=== PATIENT | male | born 1955 | race Caucasian/White ===

== ENCOUNTER 2017-01-11 09:05 | Emergency (ER) | payer SELFPAY ==
[~2017-01-11] VITALS: Ht 165.1 cm; Wt 122.5 kg
[~2017-01-11 09:05] MED LIST: HYDROCHLOROTHIA25 M1 PO; LISINOPRIL40 MG PO; TENORMIN25 MG PO
--- NOTE | 2017-01-11 09:05 | NUR ---
Patient was BIB [place] [employer] at this time and taken to [facility].
[2017-01-11 09:16] VITALS: BP 209/109
--- NOTE | 2017-01-11 09:49 | NUR ---
PATIENT IS A 61 YO MALE BIB [facility] FOR PREBOOK CLEARANCE. PATIENT HAS A HX OF HTN NOT ON MEDICATION HAS NO PMD. HE IS AWAKE AND ALERT ON ARRIVAL ABLE TO AMBULATE HIS BP IS 209/ 109 NO NEURO DEFICITIS NON SYMPTOMATIC.
--- NOTE | 2017-01-11 10:37 | NUR ---
Dr. Bajwa evaluating patient.
[2017-01-11] MEDS ORDERED: ACETAMINOPHEN EXTRA STRENGTH 500 MG TAB PO ONE (10:40)
[2017-01-11 11:28] VITALS: BP 168/96
--- NOTE | 2017-01-11 11:28 | NUR ---
Patient discharged with v/s stable. Written and verbal after care instructions given and explained. Patient verbalized understanding. Police with in custody. All questions addressed prior to discharge. Advised to follow up with PMD.
== END 2017-01-11 11:28 ==
LOC: MED 09:05
DX: Z02.89 Encounter for other administrative examinations (principal); I10 Essential (primary) hypertension; E66.01 Morbid (severe) obesity due to excess calories; Z68.41 Body mass index [BMI] 40.0-44.9, adult

== ENCOUNTER 2017-07-05 23:35 | Emergency (ER) | payer SELFPAY ==
[~2017-07-05] VITALS: Ht 167.6 cm; Wt 127.0 kg
[~2017-07-05 23:35] MED LIST changes: +ATEN25TA7 PO; +HYDR25TA32 PO; -HYDROCHLOROTHIA25 M1 PO; +LISI40TA4 PO; -LISINOPRIL40 MG PO; -TENORMIN25 MG PO
[2017-07-05 23:44] VITALS: BP 158/73
--- NOTE | 2017-07-06 01:24 | NUR ---
PT TAKEN TO BED 8
--- NOTE | 2017-07-06 01:24 | NUR ---
PATIENT PRESENTS TO ED WITH C/O BODY ACHES AND DIARRHEA SINCE INGESTIONS OF SHRIMPS YESTERDAY.PT DENIES N/V; SKIN IS PINK/WARM/DRY; AAOX4 WITH EVEN AND STEADY GAIT; LUNGS CLEAR BL; HR EVEN AND REGULAR; PT DENIES ANY FEVER, CP, SOB, OR COUGH AT THIS TIME; VSS; PATIENT POSITIONED FOR COMFORT; HOB ELEVATED; BEDRAILS UP X2; BED DOWN. ER MD MADE AWARE OF PT STATUS.
--- NOTE | 2017-07-06 01:37 | NUR ---
Dr. Dias evaluating patient at bedside.
[2017-07-06] MEDS ORDERED: ONDANSETRON 4 MG ODT PO ONE (01:40)
[2017-07-06] MEDS ORDERED: KETOROLAC 60 MG/2 ML VIAL IM ONE (01:40)
[2017-07-06 02:14] VITALS: BP 137/61
--- NOTE | 2017-07-06 02:14 | NUR ---
Patient discharged with v/s stable. Written and verbal after care instructions given and explained. Patient alert, oriented and verbalized understanding of instructions. Ambulatory with steady gait. All questions addressed prior to discharge. ID band removed. Patient advised to follow up with PMD. Rx of ZOFRAN ODT 4MG given. Patient educated on indication of medication including possible reaction and side effects. Opportunity to ask questions provided and answered.
== END 2017-07-06 02:14 | disposition home or self-care (01) ==
LOC: MED 23:35
DX: K52.89 Other specified noninfective gastroenteritis and colitis (principal); I10 Essential (primary) hypertension; Z79.899 Other long term (current) drug therapy
CPT/HCPCS: 96372; 99283; J1885; S0119

== ENCOUNTER 2021-04-10 05:41 | Emergency (ER) | payer OTHER ==
[~2021-04-10] VITALS: Ht 165.1 cm; Wt 124.7 kg
[~2021-04-10 05:41] MED LIST changes: +LISI40TA10 PO; -LISI40TA4 PO
[2021-04-10 05:45] VITALS: BP 146/76
[2021-04-10] MEDS ORDERED: DICYCLOMINE HCL LIQUID 20 MG, ALUMINUM HYD/MAG/SIMETHICONE 30 ML, LIDOCAINE VISCOUS 2% ... PO ONE ×3 (06:05)
[2021-04-10] MEDS ORDERED: LIDOCAINE VISCOUS 2% 20 ML UDC ONE (06:19)
[2021-04-10] MEDS ORDERED: ALUMINUM HYD/MAG/SIMETHICONE 30 ML UDC ONE (06:20)
[2021-04-10] MEDS ORDERED: DICYCLOMINE HCL LIQUID 10 MG/5 ML UDC ONE (06:20)
[2021-04-10] MEDS ORDERED: FAMOTIDINE 20 MG TAB PO ONE (07:00)
[2021-04-10 08:35] LABS: BASOPHILS # (AUTO) 0.1 K/uL (0.00-0.22); EOSINOPHILS # (AUTO) 0.6 K/uL (0-0.4); EOSINOPHILS % (AUTO) 6.3 % (0.0-4.0); HEMATOCRIT 37.8 % (36-52); HEMOGLOBIN 12.4 g/dL (12.0-18.0); LYMPHOCYTES # (AUTO) 2.6 K/uL (2.0-11.5); MEAN CORPUSCULAR HEMOGLOBIN 28 pg (27-31); MEAN CORPUSCULAR HGB CONC 33 g/dL (33-37); MONOCYTES # (AUTO) 0.8 K/uL (0.8-1.0); MONOCYTES % (AUTO) 8.6 % (1.7-9.3); NEUTROPHILS # (AUTO) 5.2 K/uL (1.8-7.7); NEUTROPHILS % (AUTO) 56.1 % (42.2-75.2); PLATELET COUNT (AUTO) 374 K/uL (140-450); RED BLOOD CELL COUNT(AUTO) 4.45 MIL/uL (4.20-6.10); RED CELL DISTRIBUTION WIDTH 14.3 % (11.6-13.7); WHITE BLOOD COUNT (AUTO) 9.4 K/uL (4.8-10.8)
[2021-04-10 09:01] LABS: ALBUMIN 3.3 g/dL (3.4-5.0); ANION GAP 8.4 (8-16); CARBON DIOXIDE 31.2 mmol/L (21-32); CREATININE 0.7 mg/dL (0.6-1.3); POTASSIUM 3.6 mmol/L (3.5-5.1); TOTAL BILIRUBIN 0.4 mg/dL (0.0-1.0)
[2021-04-10] MEDS ORDERED: FAMO20TA13 PO (09:37)
[2021-04-10 09:46] VITALS: BP 146/76
== END 2021-04-10 09:46 | disposition home or self-care (01) ==
LOC: MED 05:41
DX: R10.13 Epigastric pain (principal); E11.9 Type 2 diabetes mellitus without complications; I10 Essential (primary) hypertension; Z79.899 Other long term (current) drug therapy; Z98.84 Bariatric surgery status
CPT/HCPCS: 36415; 80053; 83690; 84484; 85025; 93005; 99284

== ENCOUNTER 2022-06-05 18:16 | Emergency (ER) | payer OTHER ==
[~2022-06-05] VITALS: Ht 165.1 cm; Wt 109.3 kg
[~2022-06-05 18:16] MED LIST changes: +FAMO20TA13 PO; -LISI40TA10 PO; +LISI40TA14 PO
[2022-06-05 18:43] VITALS: BP 166/90
--- NOTE | 2022-06-05 19:02 | NUR ---
67 Y/O MALE BIB SELF C/O OF OPEN ABSCESS ON THE LEFT ELBOW. PER PT HE NOTED A 'PIMPLE" ON THE AREA 3 DAYS AGO AND TODAY IT OPOPPED, NOTED OPEN AREA, NO DRAINIANGE NOTED, REDNESS AND SWELLING AROUND THE AREA. BS 483 IN TRIAGE, DENIES ANY SANDERS, N/V NKA PMH: HDL, HTN, DM, ARTHRITIS
--- NOTE | 2022-06-05 19:15 | NUR ---
Pt report given to JIMBO OBREGON. Transfer of care at this time.
--- NOTE | 2022-06-05 19:20 | NUR ---
PT IS AWAKE AND ALERT. ALL NEEDS MET AT THIS TIME.
--- NOTE | 2022-06-05 20:12 | NUR ---
Dr. Zacarias examining patient.
[2022-06-05] MEDS ORDERED: GLIP5TAB13 PO (20:22)
[2022-06-05] MEDS ORDERED: AMLO10TA89 PO (20:22)
[2022-06-05] MEDS ORDERED: CEPH500C16 PO (20:22)
[2022-06-05 20:33] VITALS: BP 166/90
--- NOTE | 2022-06-05 20:33 | NUR ---
Patient discharged with v/s stable. Written and verbal after care instructions given and explained. Patient alert, oriented and verbalized understanding of instructions. Ambulatory with steady gait. All questions addressed prior to discharge. ID band removed. Patient advised to follow up with PMD. Rx of GLIPIZIDE, AMLODIPINE, AND KEFLEX given. Patient educated on indication of medication including possible reaction and side effects. Opportunity to ask questions provided and answered.
== END 2022-06-05 20:33 | disposition home or self-care (01) ==
LOC: MED 18:16
DX: L03.114 Cellulitis of left upper limb (principal); E11.9 Type 2 diabetes mellitus without complications; I10 Essential (primary) hypertension; Z79.4 Long term (current) use of insulin; Z79.899 Other long term (current) drug therapy; Z90.49 Acquired absence of other specified parts of digestive tract; Z98.890 Other specified postprocedural states
CPT/HCPCS: 81002; 99283

== ENCOUNTER 2024-05-07 15:41 | Inpatient (IN) | payer OTHER, MEDICAID ==
[~2024-05-07] VITALS: Ht 165.1 cm; Wt 117.9 kg
[~2024-05-07 15:41] MED LIST changes: +AMLO10TA89 PO; +CEPH500C16 PO; +GLIP5TAB22 PO
[2024-05-07 16:10] VITALS: BP 172/78; PULSE 92; RESP 18; TEMP 98.4; O2SAT 96
[2024-05-07 19:22] LABS: BASOPHILS # (AUTO) 0.1 K/uL (0.00-0.22); BASOPHILS % (AUTO) 0.7 % (0.0-2.0); EOSINOPHILS # (AUTO) 0.1 K/uL (0-0.4); EOSINOPHILS % (AUTO) 0.9 % (0.0-4.0); HEMATOCRIT 37.7 % (36-52); LYMPHOCYTES # (AUTO) 3.1 K/uL (2.0-11.5); LYMPHOCYTES % (AUTO) 25.3 % (20.5-51.1); MEAN CORPUSCULAR HEMOGLOBIN 26 pg (27-31); MEAN CORPUSCULAR HGB CONC 32 g/dL (33-37); MEAN CORPUSCULAR VOLUME 81.3 fL (80-94); MONOCYTES # (AUTO) 0.9 K/uL (0.8-1.0); MONOCYTES % (AUTO) 7.4 % (1.7-9.3); NEUTROPHILS % (AUTO) 65.7 % (42.2-75.2); PLATELET COUNT (AUTO) 445 K/uL (140-450); RED BLOOD CELL COUNT(AUTO) 4.63 MIL/uL (4.20-6.10); RED CELL DISTRIBUTION WIDTH 15.3 % (11.6-13.7); WHITE BLOOD COUNT (AUTO) 12.2 K/uL (4.8-10.8)
[2024-05-07 19:31] LABS: ANION GAP 9.8 (8-16); CALCIUM 9.1 mg/dL (8.5-10.1); CARBON DIOXIDE 32.1 mmol/L (21-32); CREATININE 0.8 mg/dL (0.6-1.3); POTASSIUM 3.9 mmol/L (3.5-5.1)
[2024-05-07 19:43] LABS: LACTIC ACID 1.3 mmol/L (0.4-2.0)
[2024-05-07] MEDS: PIPERACILLIN/TAZOBACTAM 3.375 GM in DEXTROSE 5% 50 ML IV ONE (20:30)
[2024-05-07] MEDS ORDERED: PIPERACILLIN/TAZOBACTAM 3.375 GM VIAL IV ONE (20:33)
[2024-05-07] MEDS ORDERED: HYDROcodone/APAP 5/325 MG 1 TAB TAB PO PRN (20:35)
[2024-05-07] MEDS ORDERED: VANCOMYCIN 1,000 MG VIAL ONE (21:12)
[2024-05-07] MEDS: VANCOMYCIN 1,000 MG in DEXTROSE 5% 250 ML IV ONE (21:20)
[2024-05-07 21:29] VITALS: O2SAT 98
[2024-05-07] MEDS ORDERED: METF-1139 PO (21:40)
[2024-05-07] MEDS ORDERED: VIT1TABL36 PO (21:40)
[2024-05-07] MEDS: ZOLPIDEM 5 MG TAB PO SCH (21:56)
[2024-05-07] MEDS: NACL 0.9% 1,000 ML IV SCH (21:56)
[2024-05-07] MEDS ORDERED: VANCOMYCIN PER PHARMACY MC PRN (22:35)
[2024-05-07] MEDS ORDERED: hydrALAZINE 20 MG/ML VIAL IVP PRN (22:35)
[2024-05-07] MEDS: INSULIN LANTUS 100 UNITS/ML 10 ML VIAL SUBQ SCH (22:55)
[2024-05-08 01:05] VITALS: O2SAT 98
[2024-05-08 03:13] VITALS: O2SAT 100
[2024-05-08] MEDS ORDERED: PIPERACILLIN/TAZOBACTAM 3.375 GM VIAL IV ONE (04:53)
[2024-05-08] MEDS: PIPERACILLIN/TAZOBACTAM 3.375 GM in DEXTROSE 5% 50 ML IV SCH (05:09)
[2024-05-08 05:14] VITALS: O2SAT 99
[2024-05-08 06:40] LABS: BASOPHILS # (AUTO) 0.1 K/uL (0.00-0.22); BASOPHILS % (AUTO) 1.1 % (0.0-2.0); EOSINOPHILS # (AUTO) 0.2 K/uL (0-0.4); EOSINOPHILS % (AUTO) 1.6 % (0.0-4.0); HEMATOCRIT 34.8 % (36-52); HEMOGLOBIN 11.1 g/dL (12.0-18.0); LYMPHOCYTES # (AUTO) 3.5 K/uL (2.0-11.5); LYMPHOCYTES % (AUTO) 33.7 % (20.5-51.1); MEAN CORPUSCULAR HEMOGLOBIN 26 pg (27-31); MEAN CORPUSCULAR HGB CONC 32 g/dL (33-37); MEAN CORPUSCULAR VOLUME 82.9 fL (80-94); MONOCYTES # (AUTO) 0.9 K/uL (0.8-1.0); MONOCYTES % (AUTO) 8.9 % (1.7-9.3); NEUTROPHILS # (AUTO) 5.7 K/uL (1.8-7.7); NEUTROPHILS % (AUTO) 54.7 % (42.2-75.2); PLATELET COUNT (AUTO) 403 K/uL (140-450); RED CELL DISTRIBUTION WIDTH 15.1 % (11.6-13.7); WHITE BLOOD COUNT (AUTO) 10.5 K/uL (4.8-10.8)
[2024-05-08] MEDS ORDERED: VANCOMYCIN 1,000 MG VIAL ONE (06:45)
[2024-05-08] MEDS: VANCOMYCIN 1GM/DEXT 5% PREMIX 200 ML IV SCH (06:55)
[2024-05-08 07:17] LABS: ALBUMIN 2.8 g/dL (3.4-5.0); CALCIUM 8.5 mg/dL (8.5-10.1); CARBON DIOXIDE 31.7 mmol/L (21-32); CREATININE 0.6 mg/dL (0.6-1.3); POTASSIUM 3.7 mmol/L (3.5-5.1); TOTAL BILIRUBIN 0.4 mg/dL (0.0-1.0); TOTAL PROTEIN, SERUM 6.3 g/dL (6.4-8.2)
[2024-05-08] MEDS ORDERED: METF-352 PO (08:37)
[2024-05-08] MEDS ORDERED: AMLO10TA88 PO (08:37)
[2024-05-08] MEDS ORDERED: LISI10TA30 PO (08:37)
[2024-05-08] MEDS ORDERED: CHOL200072 PO (08:37)
[2024-05-08] MEDS ORDERED: ATOR20TA40 PO (08:37)
[2024-05-08 12:00] VITALS: BP 134/66; PULSE 83; RESP 18; TEMP 97.9; O2SAT 94
[2024-05-08] MEDS: PANTOPRAZOLE 40 MG INJ VIAL IVP SCH (12:23)
[2024-05-08] MEDS: atenoloL 25 MG TAB PO SCH (12:24)
[2024-05-08] MEDS: amLODIPine 5 MG TAB PO SCH (12:24)
[2024-05-08] MEDS: hydroCHLOROthiazide 25 MG TAB PO SCH (12:25)
[2024-05-08] MEDS: lisinopriL 20 MG TAB PO SCH (12:25)
[2024-05-08] MEDS: VANCOMYCIN 1,000 MG in DEXTROSE 5% 250 ML IV SCH (12:36)
[2024-05-08] MEDS: INSULIN LANTUS 100 UNITS/ML 10 ML VIAL SUBQ SCH ×2 (14:07→21:48)
[2024-05-08] MEDS: ATORVASTATIN 20 MG TAB PO SCH (15:48)
[2024-05-08 20:00] VITALS: BP 120/63; PULSE 74; PULSE 78; RESP 18; RESP 20; TEMP 98.1; O2SAT 95; O2SAT 96
[2024-05-09 04:00] VITALS: BP 138/77; PULSE 78; RESP 18; TEMP 96.7; O2SAT 95
[2024-05-09 06:26] LABS: ANION GAP 8.3 (8-16); CALCIUM 8.5 mg/dL (8.5-10.1); CREATININE 0.7 mg/dL (0.6-1.3); POTASSIUM 3.3 mmol/L (3.5-5.1)
[2024-05-09 08:00] VITALS: BP 113/56; PULSE 3; PULSE 73; RESP 19; TEMP 96.1; O2SAT 94
[2024-05-09] MEDS ORDERED: GAUZE TP PRN (11:20)
[2024-05-09 12:00] VITALS: BP 113/56; PULSE 73; RESP 19; TEMP 96.1; O2SAT 94
[2024-05-09] MEDS: GAUZE TP SCH (13:41)
[2024-05-09 16:00] VITALS: BP 108/52; PULSE 75; RESP 18; TEMP 97.3; O2SAT 95
[2024-05-09] MEDS: INSULIN LISPRO SLIDING SCALE 100 UNITS/ML VIAL SUBQ PRN (18:14)
[2024-05-09 20:00] VITALS: BP 106/59; PULSE 66; RESP 18; RESP 19; TEMP 98.6; O2SAT 96
[2024-05-09] MEDS: BLOOD GLUCOSE MONITORING 1 DEV DEV FS SCH (20:52)
[2024-05-09] MEDS: POTASSIUM CHLORIDE 10 MEQ TABER PO SCH (23:04)
[2024-05-10 04:00] VITALS: BP 128/53; PULSE 80; RESP 17; TEMP 97; O2SAT 94
[2024-05-10 08:00] VITALS: BP 118/62; PULSE 70; PULSE 81; RESP 18; TEMP 97.1; O2SAT 94; O2SAT 97
[2024-05-10 20:00] VITALS: PULSE 77; RESP 18; O2SAT 96
[2024-05-11 08:00] VITALS: BP 95/62; PULSE 85; RESP 18; TEMP 96.9; O2SAT 94; O2SAT 96
[2024-05-11] MEDS ORDERED: CIPR500T4 PO (14:10)
[2024-05-11 16:00] VITALS: BP 100/74; PULSE 77; RESP 18; TEMP 97.8; O2SAT 95
[2024-05-11 20:00] VITALS: BP 133/80; PULSE 82; RESP 18; TEMP 98.3; O2SAT 95; O2SAT 97
[2024-05-11] MEDS ORDERED: HYDROcodone/APAP 5/325 MG 1 TAB TAB PO PRN (22:00)
[2024-05-12 04:00] VITALS: BP 112/63; PULSE 75; RESP 18; TEMP 98.6; O2SAT 96
[2024-05-12 06:04] LABS: BASOPHILS # (AUTO) 0.1 K/uL (0.00-0.22); BASOPHILS % (AUTO) 1.1 % (0.0-2.0); EOSINOPHILS # (AUTO) 0.3 K/uL (0-0.4); EOSINOPHILS % (AUTO) 3.1 % (0.0-4.0); HEMATOCRIT 33.4 % (36-52); HEMOGLOBIN 10.7 g/dL (12.0-18.0); LYMPHOCYTES # (AUTO) 1.6 K/uL (2.0-11.5); LYMPHOCYTES % (AUTO) 18.4 % (20.5-51.1); MEAN CORPUSCULAR HEMOGLOBIN 26 pg (27-31); MEAN CORPUSCULAR HGB CONC 32 g/dL (33-37); MONOCYTES # (AUTO) 1.1 K/uL (0.8-1.0); MONOCYTES % (AUTO) 12.9 % (1.7-9.3); NEUTROPHILS # (AUTO) 5.6 K/uL (1.8-7.7); NEUTROPHILS % (AUTO) 64.5 % (42.2-75.2); PLATELET COUNT (AUTO) 348 K/uL (140-450); RED BLOOD CELL COUNT(AUTO) 4.08 MIL/uL (4.20-6.10); RED CELL DISTRIBUTION WIDTH 15.3 % (11.6-13.7); WHITE BLOOD COUNT (AUTO) 8.7 K/uL (4.8-10.8)
[2024-05-12 06:50] LABS: ALBUMIN 2.6 g/dL (3.4-5.0); ANION GAP 7.9 (8-16); CALCIUM 9.1 mg/dL (8.5-10.1); CARBON DIOXIDE 31.4 mmol/L (21-32); CREATININE 1.4 mg/dL (0.6-1.3); MAGNESIUM 2.1 mg/dL (1.8-2.4); PHOSPHORUS 3.7 mg/dL (2.5-4.9); POTASSIUM 3.3 mmol/L (3.5-5.1); TOTAL BILIRUBIN 0.6 mg/dL (0.0-1.0); TOTAL PROTEIN, SERUM 6.5 g/dL (6.4-8.2)
[2024-05-12 08:00] VITALS: O2SAT 98
[2024-05-12] MEDS: POTASSIUM CHLORIDE 10 MEQ TABER PO SCH (11:24)
[2024-05-12 12:00] VITALS: BP 112/63; RESP 18; TEMP 98.6; O2SAT 98
[2024-05-12 17:54] LABS: URINE TOTAL PROTEIN 67.2 mg/dL (0-12); URINE TPRO CREAT RATIO 0.2 (0-0.20)
== END 2024-05-12 16:55 | disposition home health service (06) | DRG 872 ==
LOC: MED 15:41 → MTU 20:40 → MMU 20:40
PROVIDERS: ADMIT Hospitalist; ATTEND Hospitalist
DX: A41.9 Sepsis, unspecified organism (principal); L03.115 Cellulitis of right lower limb; N17.9 Acute kidney failure, unspecified; E44.0 Moderate protein-calorie malnutrition; Z68.43 Body mass index [BMI] 50.0-59.9, adult; E87.6 Hypokalemia; E78.5 Hyperlipidemia, unspecified; I10 Essential (primary) hypertension; Z79.899 Other long term (current) drug therapy; E11.65 Type 2 diabetes mellitus with hyperglycemia; T36.8X5A Adverse effect of other systemic antibiotics, initial encounter
CPT/HCPCS: 36415; 73700; 76770; 80048; 80053; 80202; 82570; 82948; 83036; 83605; 83735; 84100; 85025; 85651; 86140; 87040; 87070; 87081; 87186; 96365; 96372; 96375; 97116; 97163-GP; 97530; 99285; J1644; J1815; J2470; J2543; J3370; J7060; Q0092

== ENCOUNTER 2024-06-16 10:45 | Emergency (ER) | payer OTHER, MEDICAID ==
[~2024-06-16] VITALS: Ht 165.1 cm; Wt 114.1 kg
[~2024-06-16 10:45] MED LIST changes: +AMLO10TA88 PO; +ATOR20TA40 PO; -CEPH500C16 PO; +CHOL200072 PO; +CIPR500T4 PO; -GLIP5TAB22 PO; +LISI10TA30 PO; +METF-352 PO; +VIT1TABL36 PO
[2024-06-16 11:07] VITALS: BP 89/37; PULSE 96; RESP 17; TEMP 97.8; O2SAT 96
[2024-06-16] MEDS: ONDANSETRON 4 MG/2 ML VIAL IVP ONE (12:08)
[2024-06-16] MEDS: NACL 0.9% 1,000 ML IV ONE (12:09)
[2024-06-16 12:10] LABS: BASOPHILS # (AUTO) 0.1 K/uL (0.00-0.22); EOSINOPHILS # (AUTO) 0.4 K/uL (0-0.4); EOSINOPHILS % (AUTO) 4.8 % (0.0-4.0); HEMATOCRIT 34.3 % (36-52); HEMOGLOBIN 10.9 g/dL (12.0-18.0); LYMPHOCYTES # (AUTO) 1.8 K/uL (2.0-11.5); LYMPHOCYTES % (AUTO) 22.6 % (20.5-51.1); MEAN CORPUSCULAR HEMOGLOBIN 26 pg (27-31); MEAN CORPUSCULAR HGB CONC 32 g/dL (33-37); MEAN CORPUSCULAR VOLUME 82.7 fL (80-94); MONOCYTES # (AUTO) 0.9 K/uL (0.8-1.0); MONOCYTES % (AUTO) 11.2 % (1.7-9.3); NEUTROPHILS # (AUTO) 4.7 K/uL (1.8-7.7); NEUTROPHILS % (AUTO) 60.4 % (42.2-75.2); PLATELET COUNT (AUTO) 332 K/uL (140-450); RED BLOOD CELL COUNT(AUTO) 4.15 MIL/uL (4.20-6.10); RED CELL DISTRIBUTION WIDTH 16.3 % (11.6-13.7); WHITE BLOOD COUNT (AUTO) 7.8 K/uL (4.8-10.8)
[2024-06-16 12:42] LABS: CALCIUM 9.4 mg/dL (8.5-10.1); CARBON DIOXIDE 28.5 mmol/L (21-32); CREATININE 1.6 mg/dL (0.6-1.3); POTASSIUM 4.5 mmol/L (3.5-5.1)
[2024-06-16 12:48] LABS: ALBUMIN 2.7 g/dL (3.4-5.0); TOTAL BILIRUBIN 0.5 mg/dL (0.0-1.0); TOTAL PROTEIN, SERUM 7.1 g/dL (6.4-8.2)
[2024-06-16 13:15] LABS: BILIRUBIN,DIRECT 0.1 mg/dL (0.0-0.3)
[2024-06-16 14:13] LABS: APPEARANCE,URINE CLEAR (CLEAR); BILIRUBIN,URINE 1+ (NEGATIVE); BLOOD, URINE NEGATIVE (NEGATIVE); COLOR,URINE YELLOW (YELLOW); LEUKOCYTE ESTERASE ,URINE NEGATIVE (NEGATIVE); NITRITE, URINE NEGATIVE (NEGATIVE); PH,URINE 5.5 (5.0-9.0); PROTEIN,URINE NEGATIVE (NEGATIVE); UGLUCOSE 3+ (NEGATIVE); UROBILINOGEN,URINE 0.2 EU/dL (0.2 - 1)
[2024-06-16 14:27] LABS: BACTERIA,URINE 2+ /HPF (None Seen); ICTOTEST NEGATIVE (NEGATIVE); MUCUS,URINE 2+ /LPF (None Seen); RBC,URINE 0-5 /HPF (0-5); SQUAMOUS EPITHELIAL CELL,UR 4-10 (MOD) /LPF (0-3 (FEW))
[2024-06-16] MEDS ORDERED: ONDA8TAB87 PO (14:32)
[2024-06-16 14:43] VITALS: BP 128/71; PULSE 84; RESP 22; TEMP 97.8; O2SAT 100
== END 2024-06-16 14:43 | disposition home or self-care (01) ==
LOC: MED 10:45
DX: R11.2 Nausea with vomiting, unspecified (principal); E86.0 Dehydration; R42 Dizziness and giddiness; E11.9 Type 2 diabetes mellitus without complications; I10 Essential (primary) hypertension; Z90.49 Acquired absence of other specified parts of digestive tract; Z98.890 Other specified postprocedural states; Z79.899 Other long term (current) drug therapy
CPT/HCPCS: 36415; 80048; 80076; 81001; 82948; 83690; 85025; 87086; 96361; 96374; 99285; J2405; J7030

== ENCOUNTER 2024-06-24 14:48 | Emergency (ER) | payer OTHER, MEDICAID ==
[~2024-06-24] VITALS: Ht 162.6 cm; Wt 99.8 kg
[~2024-06-24 14:48] MED LIST changes: +ONDA8TAB87 PO
--- NOTE | 2024-06-24 14:50 | NUR ---
PT W/C ASSISTED TO BED 11
[2024-06-24 15:05] VITALS: BP 87/47; PULSE 94; RESP 18; TEMP 97.3; O2SAT 90
[2024-06-24 15:15] VITALS: O2SAT 90
--- NOTE | 2024-06-24 15:15 | NUR ---
69YO MALE PT BIB [facility] C/O INCREASED DIZZINESS AND GEN WEAK XTODAY. REPORTS INITIAL INTERMITTENT ONSETS O2GYPSE. +NAUSEA/DIARRHEA(-blood). DENIES VOMITING, CHEST PAIN, SOB, FEVER OR CHILLS. PT SEEN IN ER 06/16 FOR S/S. PT AAOX4 W/ DELAYED SPEECH. DIAPHORETIC AND HYPOTENSIVE ON ARRIVAL. W/C ASSISTED TO ROOM. ON CONSULTING SOLUTION MANAGER. BED AT LOWEST POSITION, BED RAILS UPX2. CALL LIGHT WITHIN REACH. HX: HTN, HLD, DM NKA
[2024-06-24] MEDS: NACL 0.9% 2,000 ML IV ONE (15:32)
--- NOTE | 2024-06-24 15:33 | NUR ---
lab at bedside
[2024-06-24 16:17] LABS: BASOPHILS # (AUTO) 0.1 K/uL (0.00-0.22); BASOPHILS % (AUTO) 0.8 % (0.0-2.0); EOSINOPHILS # (AUTO) 0.6 K/uL (0-0.4); EOSINOPHILS % (AUTO) 5.4 % (0.0-4.0); HEMATOCRIT 33.8 % (36-52); HEMOGLOBIN 10.6 g/dL (12.0-18.0); LYMPHOCYTES # (AUTO) 2.3 K/uL (2.0-11.5); LYMPHOCYTES % (AUTO) 21.6 % (20.5-51.1); MEAN CORPUSCULAR HEMOGLOBIN 26 pg (27-31); MEAN CORPUSCULAR HGB CONC 32 g/dL (33-37); MEAN CORPUSCULAR VOLUME 82.6 fL (80-94); MONOCYTES # (AUTO) 1.3 K/uL (0.8-1.0); MONOCYTES % (AUTO) 12.2 % (1.7-9.3); NEUTROPHILS # (AUTO) 6.3 K/uL (1.8-7.7); PLATELET COUNT (AUTO) 577 K/uL (140-450); RED BLOOD CELL COUNT(AUTO) 4.09 MIL/uL (4.20-6.10); RED CELL DISTRIBUTION WIDTH 16.3 % (11.6-13.7); WHITE BLOOD COUNT (AUTO) 10.5 K/uL (4.8-10.8)
--- NOTE | 2024-06-24 16:23 | NUR ---
us at bedside Addendum: 06/24/24 at 1644 by [facility] xray at bedside
[2024-06-24 16:29] LABS: CALCIUM 9.7 mg/dL (8.5-10.1); CARBON DIOXIDE 28.8 mmol/L (21-32); CREATININE 1.7 mg/dL (0.6-1.3); POTASSIUM 3.8 mmol/L (3.5-5.1)
[2024-06-24 16:35] LABS: ALANINE AMINOTRANSFERASE 32 U/L (12-78); ALBUMIN 2.6 g/dL (3.4-5.0); ASPARTATE AMINOTRANSFERASE 20 U/L (15-37); BILIRUBIN,DIRECT 0.1 mg/dL (0.0-0.3)
[2024-06-24 16:47] LABS: ALKALINE PHOSPHATASE 87 U/L (50-136); TOTAL PROTEIN, SERUM 6.9 g/dL (6.4-8.2)
[2024-06-24 16:48] LABS: LIPASE 48 U/L (16-77); TOTAL BILIRUBIN 0.3 mg/dL (0.0-1.0)
[2024-06-24 17:27] LABS: INR 1.04 (0.8-1.2); PARTIAL THROMBOPLASTIN TIME 24.2 secs (22-35.6); PROTHROMBIN TIME 10.9 secs (10.8-13.4)
[2024-06-24 17:40] VITALS: BP 116/61; PULSE 86; RESP 13; TEMP 97.8; O2SAT 98
[2024-06-24] MEDS ORDERED: FAMO-92 PO (18:11)
[2024-06-24] MEDS ORDERED: ONDA-188 PO (18:11)
--- NOTE | 2024-06-24 18:20 | NUR ---
IV removed, catheter intact and site benign. Applied folded 4x4 gauze and tape to stop bleeding.
--- NOTE | 2024-06-24 18:21 | NUR ---
Patient discharged with v/s stable. Written and verbal after care instructions FOR DEHYDRATION AND GASTRITIS given and explained. Patient alert, oriented and verbalized understanding of instructions. Ambulatory with steady gait. All questions addressed prior to discharge. ID band removed. Patient advised to follow up with PMD. Rx of ZOFRAN ODT AND PEPCID given. Opportunity to ask questions provided and answered. COPY OF LABS AND US PROVIDED
--- NOTE | 2024-06-24 18:21 | NUR ---
Chart checked and completed. The patient's care was reviewed and supervised by LOR CASAS RN.
== END 2024-06-24 18:21 | disposition home or self-care (01) ==
LOC: MED 14:48
DX: E86.0 Dehydration (principal); R19.7 Diarrhea, unspecified; R11.0 Nausea; Z20.822 Contact with and (suspected) exposure to COVID-19; E11.9 Type 2 diabetes mellitus without complications; I10 Essential (primary) hypertension; E78.5 Hyperlipidemia, unspecified; Z98.84 Bariatric surgery status; Z90.49 Acquired absence of other specified parts of digestive tract; Z79.899 Other long term (current) drug therapy
CPT/HCPCS: 36415; 71045; 76705; 80048; 80076; 83605; 83690; 84484; 85025; 85610; 85730; 87040; 87426; 93005; 96360; 99285; J7030; Q0092